=== PATIENT | female | born 1995 | race Hispanic/Latino ===

== ENCOUNTER 2022-01-11 08:49 | Emergency (ER) | payer BC, OTHER ==
[2022-01-11 10:10] VITALS: TEMP 97.7
[2022-01-11 10:14] VITALS: BP 122/64; O2SAT 99
--- NOTE | 2022-01-13 09:20 | EDPHYS ---
Physician Documentation [facility] Name: Patsy Merritt Age: 26 yrs Sex: Female : 1995 Arrival Date: 01/11/2022 Time: 08:57 Bed 17 Private MD: ED Physician Emiliano Mortensen HPI: 01/11 09:32 This 26 yrs old Female presents to ER via Ambulatory with complaints of [facility] Depression. 09:32 This is a 26-year-old female with history of anxiety and depression the presents [facility] emerged department with complaints of suicidal thoughts and depression. Patient states she just returned home from college and has yet to establish herself with a psychiatrist. Patient does not have a plan to harm her self but states she has had suicidal thoughts in the past. Patient also states previously having suicidal gestures but no serious attempts that she would describe it.. Historical: - Home Meds: 09:06 buspirone 15 mg Oral tab 1 tab 2 times per day [Active]; fluoxetine 20 mg Oral cap 1 rajan cap once daily [Active]; hydroxyzine HCl 25 mg Oral tab 1 tab twice a day [Active]; - PMHx: 09:06 Depressive disorder; Anxiety; rajan - PSHx: 09:06 None; rajan - Immunization history:: Adult Immunizations. - Social history:: Smoking status: Patient denies any tobacco usage or history of. ROS: 09:32 Constitutional: Negative for fever, chills, and weight loss, Cardiovascular: Negative jm for chest pain, palpitations, and edema, Respiratory: Negative for shortness of breath, cough, wheezing, and pleuritic chest pain. 09:32 Psych: Positive for depression, suicidal ideation. 09:32 All other systems are negative. Exam: 09:32 Constitutional: This is a well developed, well nourished patient who is awake, alert, jmm and in no acute distress. Head/Face: atraumatic. Eyes: EOMI, no conjunctival erythema appreciated ENT: Moist Mucus Membranes Neck: Trachea midline, Supple Chest/axilla: Normal chest wall appearance and motion. Cardiovascular: Regular rate and rhythm. No edema appreciated Respiratory: Normal respirations, no respiratory distress appreciated Abdomen/GI: Non distended Back: Normal ROM Skin: General appearance color normal MS/ Extremity: Moves all extremities, no obvious deformities appreciated, no edema noted to the lower extremities Neuro: Awake and alert 09:32 Psych: Behavior/mood is pleasant, cooperative, anxious, depressed. Vital Signs: 09:03 BP 121 / 77; Pulse 76; Resp 18; Temp 97.7(T); Pulse Ox 100% ; Weight 42.18 kg; Height 5 rajan ft. 1 in. (154.94 cm); 09:46 BP 122 / 64; Pulse 70; Resp 16; Pulse Ox 99% on R/A; Pain 0/10; bm7 09:03 Body Mass Index 17.57 (42.18 kg, 154.94 cm) rajan MDM: 09:18 Patient medically screened. [facility] 09:34 Data reviewed: vital signs, nurses notes. Counseling: I had a detailed discussion with [facility] the patient and/or guardian regarding: the historical points, exam findings, and any diagnostic results supporting the discharge/admit diagnosis, the need for outpatient follow up, to return to the emergency department if symptoms worsen or persist or if there are any questions or concerns that arise at home. 09:37 ED course: The patient elected for outpatient care. Information was given on clinics [facility] she could visit as well. Patient currently has no suicidal plan but will return to the ER if her symptoms worsen.. Administered Medications: No medications were administered Disposition: 16:15 Co-signature as Attending Physician, Emiliano Mortensen MD. rn Disposition Summary: 01/11/22 09:34 Discharge Ordered Location: Home [facility] Condition: Stable [facility] Diagnosis - Suicidal ideations [facility] Followup: [facility] - With: Private Physician - When: 2 - 3 days - Reason: Recheck today's complaints, Continuance of care, Re-evaluation by your physician Discharge Instructions: - Discharge Summary Sheet [facility] - Suicidal Feelings: How to Help Yourself [facility] Forms: - Medication Reconciliation Form [facility] - Thank You Letter [facility] - Antibiotic Education [facility] - Prescription Opioid Use [facility] Signatures: Marcio De La Fuente PA PA jmm Nieto, Roman, MD MD rn Au-StagerRachelle RN RN rajan
--- NOTE | 2022-01-13 09:20 | ER ---
Nurse's Notes [facility] Name: Patsy Merritt Age: 26 yrs Sex: Female : 1995 Arrival Date: 01/11/2022 Time: 08:57 Bed 17 Private MD: Diagnosis: Suicidal ideations Presentation: 01/11 09:03 Chief complaint: Patient states: pt presented to ED reporting feeling hopeless, thought rajan of harming self but has not plans to do so. pt recently moved back home from [place] and just feel really down not wanting to eat and dont feel like self . pt does take medications for depression. Coronavirus screen: Vaccine status: Patient reports being unvaccinated. Ebola Screen: Patient denies travel to an Ebola-affected area in the 21 days before illness onset. Initial Sepsis Screen: Does the patient meet any 2 criteria? No. Patient's initial sepsis screen is negative. Does the patient have a suspected source of infection? No. Patient's initial sepsis screen is negative. Risk Assessment: Do you want to hurt yourself or someone else? Patient reports desire/thoughts of hurting themselves or someone else. Provider notified. Onset of symptoms was January 11, 2022. 09:03 Method Of Arrival: Ambulatory rajan 09:03 Acuity: TAMARA 2 rajan Triage Assessment: 09:45 General: Appears in no apparent distress. comfortable, well groomed, well developed, bm7 Behavior is calm, cooperative, appropriate for age. Pain: Denies pain. EENT: No deficits noted. No signs and/or symptoms were reported regarding the EENT system. Neuro: No deficits noted. Cardiovascular: No deficits noted. Respiratory: No deficits noted. GI: No deficits noted. No signs and/or symptoms were reported involving the gastrointestinal system. : No deficits noted. No signs and/or symptoms were reported regarding the genitourinary system. Derm: No deficits noted. No signs and/or symptoms reported regarding the dermatologic system. Musculoskeletal: No deficits noted. No signs and/or symptoms reported regarding the musculoskeletal system. Historical: - Home Meds: 09:06 buspirone 15 mg Oral tab 1 tab 2 times per day [Active]; fluoxetine 20 mg Oral cap 1 rajan cap once daily [Active]; hydroxyzine HCl 25 mg Oral tab 1 tab twice a day [Active]; - PMHx: 09:06 Depressive disorder; Anxiety; rajna - PSHx: 09:06 None; rajan - Immunization history:: Adult Immunizations. - Social history:: Smoking status: Patient denies any tobacco usage or history of. Screenin:33 Abuse screen: Denies threats or abuse. Nutritional screening: No deficits noted. bm7 Tuberculosis screening: No symptoms or risk factors identified. Fall Risk None identified. Assessment: 09:15 Reassessment: PA at bedside to assess. bm7 Vital Signs: 09:03 BP 121 / 77; Pulse 76; Resp 18; Temp 97.7(T); Pulse Ox 100% ; Weight 42.18 kg; Height 5 rajan ft. 1 in. (154.94 cm); 09:46 BP 122 / 64; Pulse 70; Resp 16; Pulse Ox 99% on R/A; Pain 0/10; bm7 09:03 Body Mass Index 17.57 (42.18 kg, 154.94 cm) rajan ED Course: 08:57 Patient arrived in ED. am2 09:04 Marcio De La Fuente PA is PHCP. [facility] 09:04 Emiliano Mortensen MD is Attending Physician. [facility] 09:06 Triage completed. rajan 09:15 Mojgan Guardado, SHU is Primary Nurse. bm7 09:33 Patient has correct armband on for positive identification. Adult w/ patient. bm7 09:33 No provider procedures requiring assistance completed. Patient did not have IV access bm7 during this emergency room visit. 09:45 Arm band placed on right wrist. bm7 Administered Medications: No medications were administered Medication: 09:33 VIS not applicable for this client. bm7 Outcome: 09:34 Discharge ordered by . [facility] 09:[address] Nelson office bm7 09:46 Condition: good 09:46 Discharge instructions given to patient, family, Instructed on the need for transfer, PSychiatric follow up at Dr. Price 09:47 Patient left the ED. bm7 Signatures: Marcio De La Fuente PA PA Valery Wu am2 Mojgan Guardado, RN RN [facility] Au-StagerRachelle RN RN Corrections: (The following items were deleted from the chart) 09:38 09:33 Patient is placed in psych hold 7 bm7 09:38 09:33 Patient is placed in psych hold bm7 bm7
== END 2022-01-11 09:47 | disposition home or self-care (01) ==
LOC: ER 08:49
DX: R45.851 Suicidal ideations (principal); F32.A Depression, unspecified; F41.9 Anxiety disorder, unspecified
CPT/HCPCS: 99281